=== PATIENT | female | born 1970 | race Caucasian/White ===

== ENCOUNTER 2017-02-04 20:54 | Emergency (ER) | payer MEDICAID ==
[~2017-02-04] VITALS: Ht 162.6 cm; Wt 78.9 kg
[~2017-02-04 20:54] MED LIST: BUSP10TA3 PO; PROZAC; SERT50TA PO; ZYPREXA
[2017-02-04] MEDS ORDERED: PREG100C PO (22:11)
[2017-02-04] MEDS ORDERED: DULO60CA45 PO (22:12)
--- NOTE | 2017-02-04 23:01 | NUR ---
Pt dc;ed home w/ aci , pt given script for clindamycin po and kenalog cream and motrin po.
[2017-02-04 23:02] VITALS: BP 128/82
== END 2017-02-04 23:03 | disposition home or self-care (01) ==
LOC: ER 20:57
DX: L03.115 Cellulitis of right lower limb (principal); K21.9 Gastro-esophageal reflux disease without esophagitis; F17.200 Nicotine dependence, unspecified, uncomplicated; F41.9 Anxiety disorder, unspecified
CPT/HCPCS: A4663

== ENCOUNTER 2017-10-28 23:07 | Emergency (ER) | payer BC ==
[~2017-10-28] VITALS: Ht 162.6 cm; Wt 56.7 kg
[~2017-10-28 23:07] MED LIST changes: +DULO60CA45 PO; +PREG100C PO; -PROZAC; -ZYPREXA; +ZYPREXA PO
--- NOTE | 2017-10-28 23:23 | NUR ---
DR. KNOX AT BEDSIDE FOR MSE.
[2017-10-28] MEDS ORDERED: IV NORMAL SALINE 1000 ML BAG IV ONE (23:45)
[2017-10-28 23:55] LABS: BASOPHILS # (AUTO) 0.1 K/uL (0.0-8.0); BASOPHILS % (AUTO) 0.8 % (0.0-2.0); EOSINOPHILS # (AUTO) 0.2 K/uL (0.0-0.7); EOSINOPHILS % (AUTO) 2.1 % (0.0-7.0); HEMATOCRIT 41.8 % (31.2-41.9); HEMOGLOBIN 13.5 g/dL (10.9-14.3); LYMPHOCYTES # (AUTO) 4.3 K/uL (20.0-40.0); LYMPHOCYTES % (AUTO) 44.1 % (20.5-51.5); MEAN CORPUSCULAR HGB CONC 32 g/dL (32.3-35.6); MEAN CORPUSCULAR VOLUME 80.6 fL (75.5-95.3); MONOCYTES # (AUTO) 0.7 K/uL (2.0-10.0); MONOCYTES % (AUTO) 6.8 % (0.0-11.0); NEUTROPHILS # (AUTO) 4.5 K/uL (1.8-8.9); NEUTROPHILS % (AUTO) 46.2 % (38.5-71.5); PLATELET COUNT (AUTO) 211 K/uL (179-408); RED BLOOD CELL COUNT(AUTO) 5.19 MIL/uL (3.63-4.92); WHITE BLOOD COUNT (AUTO) 9.7 K/uL (3.8-11.8)
--- NOTE | 2017-10-28 23:57 | NUR ---
ORAL CONTRAST STARTED AT THIS TIME. RADIOLOGY NOTIFIED.
[2017-10-29 00:11] LABS: BILIRUBIN,DIRECT 0.2 mg/dL (0.0-0.2); BILIRUBIN,TOTAL 0.7 mg/dL (0.2-1.0); CREATININE 0.8 mg/dL (0.6-1.3); TOTAL PROTEIN, SERUM 6.9 g/dL (6.4-8.2)
[2017-10-29] MEDS ORDERED: DIATR MEGLU/DIATRIZOATE SODIUM 120 ML BOTTLE ONE (00:13)
[2017-10-29 00:16] LABS: POTASSIUM 2.8 mmol/L (3.5-5.1)
[2017-10-29] MEDS ORDERED: DIATR MEGLU/DIATRIZOATE SODIUM 120 ML BOTTLE PO ONE (00:30)
[2017-10-29] MEDS ORDERED: POTASSIUM CHLORIDE 20 MEQ TAB.PRT.SR PO ONE (00:30)
[2017-10-29] MEDS ORDERED: POTASSIUM CHLORIDE 20 MEQ POWDER PACKET PO ONE (01:15)
[2017-10-29] MEDS ORDERED: POTASSIUM CHLORIDE 20 MEQ POWDER PACKET ONE (01:22)
[2017-10-29] MEDS ORDERED: IV NORMAL SALINE 250 ML IV ONE (01:37)
[2017-10-29] MEDS ORDERED: IOHEXOL 300MG/ML 100 ML INFUS..BTL ONE (01:37)
--- NOTE | 2017-10-29 03:21 | NUR ---
Patient discharged to home in stable conditon. Written and verbal after care instructions given. Patient verbalizes understanding of instructions. PATIENT LEFT WITH STABLE GAIT.
[2017-10-29 03:23] VITALS: BP 114/78
== END 2017-10-29 03:23 | disposition home or self-care (01) ==
LOC: ER 23:11
DX: R11.0 Nausea (principal); R53.1 Weakness; R10.9 Unspecified abdominal pain; K21.9 Gastro-esophageal reflux disease without esophagitis; F17.200 Nicotine dependence, unspecified, uncomplicated; Z90.49 Acquired absence of other specified parts of digestive tract
CPT/HCPCS: 36415; 70030-TC; 71010; 83690; 83735; 84703; 85025; 85730; 93005; A4663; J7030; J7050; Q9963; Q9967

== ENCOUNTER 2017-11-02 16:40 | Emergency (ER) | payer BC ==
[~2017-11-02] VITALS: Ht 157.5 cm; Wt 77.1 kg
[2017-11-02] MEDS ORDERED: ESOM20CA PO (16:57)
[2017-11-02] MEDS ORDERED: ESOM40CA52 PO (16:57)
[2017-11-02] MEDS ORDERED: GABA-534 PO (16:57)
[2017-11-02] MEDS ORDERED: IV NS 1000 ML 1,000 ML IV ONE (17:30)
[2017-11-02 17:55] LABS: BASOPHILS % (AUTO) 0.3 % (0.0-2.0); EOSINOPHILS # (AUTO) 0.2 K/uL (0.0-0.7); EOSINOPHILS % (AUTO) 1.7 % (0.0-7.0); HEMATOCRIT 41.5 % (31.2-41.9); HEMOGLOBIN 13.5 g/dL (10.9-14.3); LYMPHOCYTES % (AUTO) 26.4 % (20.5-51.5); MEAN CORPUSCULAR HEMOGLOBIN 26.2 uug (24.7-32.8); MEAN CORPUSCULAR HGB CONC 32 g/dL (32.3-35.6); MEAN CORPUSCULAR VOLUME 80.8 fL (75.5-95.3); MONOCYTES # (AUTO) 0.6 K/uL (2.0-10.0); NEUTROPHILS # (AUTO) 7.6 K/uL (1.8-8.9); NEUTROPHILS % (AUTO) 66.6 % (38.5-71.5); PLATELET COUNT (AUTO) 209 K/uL (179-408); RED BLOOD CELL COUNT(AUTO) 5.14 MIL/uL (3.63-4.92); WHITE BLOOD COUNT (AUTO) 11.4 K/uL (3.8-11.8)
[2017-11-02 18:04] LABS: BILIRUBIN,TOTAL 0.7 mg/dL (0.2-1.0); CREATININE 0.8 mg/dL (0.6-1.3); TOTAL PROTEIN, SERUM 7.1 g/dL (6.4-8.2)
[2017-11-02 18:09] LABS: POTASSIUM 2.8 mmol/L (3.5-5.1)
[2017-11-02] MEDS ORDERED: POTASSIUM CHLORIDE 20 MEQ TAB.PRT.SR PO ONE (18:15)
--- NOTE | 2017-11-02 18:23 | NUR ---
Patient refused oral potassium MD amilcar notified
[2017-11-02] MEDS ORDERED: POTASSIUM CHLORIDE 20 MEQ TAB.PRT.SR ONE (18:35)
--- NOTE | 2017-11-02 19:02 | NUR ---
Dr De Leon is at bedside evaluating the patient at this time.
--- NOTE | 2017-11-02 19:06 | NUR ---
Hands off report given to ROMINA Hernández accordingly
[2017-11-02] MEDS ORDERED: POTASSIUM CHLORIDE 50 ML IV SCH (19:15)
[2017-11-02] MEDS ORDERED: IV NORMAL SALINE 1000 ML BAG IV ONE (19:15)
--- NOTE | 2017-11-02 19:20 | NUR ---
Received report from ROMINA Winston. Assumed care of pt at this time.
[2017-11-02 19:25] LABS: *BLOOD, URINE 2+ (NEGATIVE); *CLARITY,URINE CLOUDY (CLEAR); *COLOR,URINE DARK YELLOW (YELLOW); *KETONES,URINE 2+ (NEGATIVE); *PROTEIN,URINE 2+ (NEGATIVE); LEUKOCYTE ESTERASE ,URINE 1+ (NEGATIVE); NITRITE, URINE NEGATIVE (NEGATIVE); PH,URINE 5.5 (5.0-8.0); UGLUCOSE NEGATIVE (NEGATIVE)
[2017-11-02 19:29] LABS: *BILIRUBIN,URIN 2+ (NEGATIVE)
--- NOTE | 2017-11-02 19:30 | NUR ---
CALLED FOR POTASSIUM, OUT OF STOCK IN ER
[2017-11-02 19:31] LABS: BACTERIA,URINE MANY /HPF (NONE SEEN); SQUAMOUS EPITHELIAL CELL,UR FEW /HPF (NONE SEEN); WBC,URINE 20-50 /HPF (0-3)
[2017-11-02] MEDS ORDERED: MAGNESIUM SULFATE/D5W 100 ML IV SCH (20:45)
[2017-11-02] MEDS ORDERED: CEFTRIAXONE 500 MG VIAL IV ONE (21:15)
--- NOTE | 2017-11-02 21:22 | NUR ---
PT PROVIDED ICE CHIPS, WILL MONITOR TOLERATION. DENIES N/V AT THIS TIME. RESTING COMFORTABLY.
[2017-11-02] MEDS ORDERED: MAGNESIUM SULFATE/D5W 100 ML ONE (22:02)
[2017-11-02] MEDS ORDERED: CEFTRIAXONE 500 MG VIAL ONE (22:03)
[2017-11-02] MEDS ORDERED: POT CHLORIDE/POT BICARB/CIT AC 25 MEQ TABLET.EFF PO ONE (22:45)
[2017-11-02] MEDS ORDERED: POTASSIUM BICARBONATE/CIT AC 25 MEQ TABLET.EFF ONE (23:29)
--- NOTE | 2017-11-02 23:29 | NUR ---
Pt sts she is feeling better. Pt stable for discharge per MD. IV dc'd, catheter intact. Drsg applied. No problems noted to site. Pt given ACI. Pt verbalized understanding of dc instructions. Pt ambulated out of er with steady gait.
[2017-11-02 23:34] VITALS: BP 100/51
== END 2017-11-02 23:42 | disposition home or self-care (01) ==
LOC: ER 16:40
DX: K31.1 Adult hypertrophic pyloric stenosis (principal); K21.9 Gastro-esophageal reflux disease without esophagitis; E86.0 Dehydration; E87.6 Hypokalemia; F17.200 Nicotine dependence, unspecified, uncomplicated; Z90.49 Acquired absence of other specified parts of digestive tract
CPT/HCPCS: 36415; 71010; 80053; 81001; 83735; 85025; 87086; 93005; 96361; 96365; 96367; 99285; A4663; J0696; J3475; J7030 ×5; 87077

== ENCOUNTER 2018-05-09 18:57 | Emergency (ER) | payer BC ==
[~2018-05-09] VITALS: Ht 162.6 cm; Wt 86.6 kg
[~2018-05-09 18:57] MED LIST changes: +ESOM20CA PO; +ESOM40CA52 PO; +GABA-534 PO
--- NOTE | 2018-05-09 20:08 | NUR ---
Dr. Pond at bedside for MSE.
--- NOTE | 2018-05-09 21:18 | NUR ---
Ultrasound at bedside.
--- NOTE | 2018-05-09 22:32 | NUR ---
Patient discharged to home in stable conditon. Written and verbal after care instructions given. Patient verbalizes understanding of instructions. Crutches dispensed, gait training provided, Patient ambulated out of ER with crutches, VSS, all belongings taken, no acute signs of distress.
[2018-05-09 23:09] VITALS: BP 115/79
== END 2018-05-09 22:32 | disposition home or self-care (01) ==
LOC: ER 19:01
DX: M79.604 Pain in right leg (principal); K21.9 Gastro-esophageal reflux disease without esophagitis; F17.200 Nicotine dependence, unspecified, uncomplicated; Z90.49 Acquired absence of other specified parts of digestive tract; Z79.899 Other long term (current) drug therapy
CPT/HCPCS: 73590; 73600; 73620; A4663

== ENCOUNTER 2019-03-29 16:53 | Emergency (ER) | payer BC ==
[~2019-03-29] VITALS: Ht 160 cm; Wt 99.8 kg
--- NOTE | 2019-03-29 17:40 | NUR ---
Dr De Leon at the bedside for MSE.
[2019-03-29] MEDS: MORPHINE SULFATE 4 MG/1 ML DISP.SYRIN IM ONE ×2 (17:59→18:00)
[2019-03-29] MEDS: ONDANSETRON 4 MG/2 ML VIAL IM ONE ×2 (18:00→18:01)
[2019-03-29 18:01] VITALS: BP 110/79
--- NOTE | 2019-03-29 18:01 | NUR ---
Patient discharged to home in stable conditon. Written and verbal after care instructions given. Patient verbalizes understanding of instructions.
== END 2019-03-29 18:03 | disposition home or self-care (01) ==
LOC: ER 16:53
DX: L03.116 Cellulitis of left lower limb (principal); K21.9 Gastro-esophageal reflux disease without esophagitis; F17.200 Nicotine dependence, unspecified, uncomplicated; Z90.49 Acquired absence of other specified parts of digestive tract; Z79.899 Other long term (current) drug therapy
CPT/HCPCS: A4663

== ENCOUNTER 2019-08-14 15:17 | Emergency (ER) | payer BC ==
[~2019-08-14] VITALS: Ht 162.6 cm; Wt 95.7 kg
[~2019-08-14 15:17] MED LIST changes: -SERT50TA PO
[2019-08-14 16:00] LABS: BASOPHILS # (AUTO) 0.1 K/uL (0.0-8.0); BASOPHILS % (AUTO) 0.7 % (0.0-2.0); EOSINOPHILS # (AUTO) 0.1 K/uL (0.0-0.7); EOSINOPHILS % (AUTO) 1.1 % (0.0-7.0); HEMATOCRIT 42.7 % (31.2-41.9); HEMOGLOBIN 13.7 g/dL (10.9-14.3); LYMPHOCYTES # (AUTO) 3.4 K/uL (20.0-40.0); MEAN CORPUSCULAR HEMOGLOBIN 26.2 uug (24.7-32.8); MEAN CORPUSCULAR HGB CONC 32 g/dL (32.3-35.6); MEAN CORPUSCULAR VOLUME 81.5 fL (75.5-95.3); MONOCYTES # (AUTO) 0.5 K/uL (2.0-10.0); MONOCYTES % (AUTO) 4.6 % (0.0-11.0); NEUTROPHILS # (AUTO) 6.9 K/uL (1.8-8.9); NEUTROPHILS % (AUTO) 62.6 % (38.5-71.5); PLATELET COUNT (AUTO) 226 K/uL (179-408); RED BLOOD CELL COUNT(AUTO) 5.23 MIL/uL (3.63-4.92); WHITE BLOOD COUNT (AUTO) 11.1 K/uL (3.8-11.8)
[2019-08-14 16:02] LABS: CREATININE 0.7 mg/dL (0.6-1.3); POTASSIUM 3.9 mmol/L (3.5-5.1)
[2019-08-14 16:09] LABS: BILIRUBIN,DIRECT 0.1 mg/dL (0.0-0.2); BILIRUBIN,TOTAL 0.4 mg/dL (0.2-1.0); TOTAL PROTEIN, SERUM 7.3 g/dL (6.4-8.2)
[2019-08-14] MEDS ORDERED: ASPIRIN 325 MG TABLET PO ONE (16:15)
[2019-08-14 16:18] LABS: *BILIRUBIN,URIN 1+ (NEGATIVE); *BLOOD, URINE 2+ (NEGATIVE); *COLOR,URINE DARK YELLOW (YELLOW); *KETONES,URINE 1+ (NEGATIVE); *UROBILINOGEN,URINE 0.2 E.U./dl (NORMAL); LEUKOCYTE ESTERASE ,URINE NEGATIVE (NEGATIVE); NITRITE, URINE NEGATIVE (NEGATIVE); PH,URINE 5.5 (5.0-8.0); UGLUCOSE NEGATIVE (NEGATIVE)
[2019-08-14 16:19] LABS: *URINE HCG, QUAL NEGATIVE (NEGATIVE)
[2019-08-14 16:22] LABS: *CLARITY,URINE SLIGHTLY HAZY (CLEAR)
[2019-08-14 16:23] LABS: WBC,URINE 0-3 /HPF (0-3)
[2019-08-14 16:24] LABS: MUCUS,URINE MANY /LPF (0-FEW); SQUAMOUS EPITHELIAL CELL,UR FEW /HPF (NONE SEEN)
[2019-08-14] MEDS ORDERED: ASPIRIN 325 MG TABLET ONE (16:39)
--- NOTE | 2019-08-14 16:40 | NUR ---
Radha readgunjan in EDM - 08/14/19 at 1642 by SUNDAR PT WAS EVALUATED BY DR HART. PT WAS MEDICATED ACCORDING TO DR HART ORDERS. PT TOLERATED TO MEDICATIONS AND PROCEDURES WITHOUT COMPLICATIONS. REPORT WAS GIVEN TO ROMINA Gomez/Gerardo. PT WAS TRANSFERED TO ROOM #305.
--- NOTE | 2019-08-14 16:42 | NUR ---
PT IS IN ROOM #1B. DR HART EVALUATE THE PT.
--- NOTE | 2019-08-14 19:03 | NUR ---
PT IS GOING TO BE TRANSFERED TO [facility]IA [facility]. MECHE TOVAR IS DR SAGE. HOSPITAL REP ISTERRY. PT IS GOING TO TELEMETRY ROOM #522. TELEPHONE NUMBER FOR [facility] IS - [phone]. AUTORIZATION # [id number] - TO CALL AMBULANCE.
--- NOTE | 2019-08-14 19:13 | NUR ---
[facility] WAS CALLED AT # 28-28 . HAM IS 3 HRS. TRIP # [id number]. REPORT GIVEN TO [employer]AXIM[employer] REPAIRER ROMINA SANDOVAL.
--- NOTE | 2019-08-14 22:30 | NUR ---
pt was transfered to [facility] via ambulancce . report given to ira VANEGAS and the ambulance . pt on her route to [facility].
== END 2019-08-15 00:10 | disposition short-term general hospital (02) ==
LOC: ER 15:18
DX: R07.9 Chest pain, unspecified (principal); R42 Dizziness and giddiness; R11.0 Nausea; K21.9 Gastro-esophageal reflux disease without esophagitis; F17.210 Nicotine dependence, cigarettes, uncomplicated; I25.2 Old myocardial infarction; Z90.49 Acquired absence of other specified parts of digestive tract; Z79.899 Other long term (current) drug therapy
CPT/HCPCS: 36415; 70030-TC; 71046; 83690; 84703; 85025; 93005; A4663

== ENCOUNTER 2022-12-09 16:11 | Emergency (ER) | payer BC ==
[~2022-12-09] VITALS: Ht 165.1 cm; Wt 81.2 kg
[~2022-12-09 16:11] MED LIST changes: -ESOM40CA52 PO; -GABA-534 PO; -PREG100C PO; -ZYPREXA PO
--- NOTE | 2022-12-09 18:45 | NUR ---
Pt arrived w/ c/o coughing. Seen by Dr. Bello for MSE.
--- NOTE | 2022-12-09 19:07 | NUR ---
Endorsed to Deidre VANEGAS.
[2022-12-09] MEDS ORDERED: HYDROMORPHONE 1 MG/1 ML DISP.SYRIN ONE (19:28)
--- NOTE | 2022-12-09 19:30 | NUR ---
SBAR FROM MURALI Naik RN; PT IN NAD
--- NOTE | 2022-12-09 21:00 | NUR ---
Patient discharged to home in stable condition. Written and verbal after care instructions given. Patient verbalizes understanding of instructions. Stressed follow up or return to ER for worsening s/s.
[2022-12-09 21:05] VITALS: BP 136/72
== END 2022-12-09 21:00 | disposition home or self-care (01) ==
LOC: ER 16:11
DX: R07.0 Pain in throat (principal); R05.9 Cough, unspecified; Z20.822 Contact with and (suspected) exposure to COVID-19; Z90.49 Acquired absence of other specified parts of digestive tract; Z98.84 Bariatric surgery status; K21.9 Gastro-esophageal reflux disease without esophagitis; F41.9 Anxiety disorder, unspecified; Z79.899 Other long term (current) drug therapy; F17.210 Nicotine dependence, cigarettes, uncomplicated
CPT/HCPCS: 71045; 86403; A4663; J1170

== ENCOUNTER 2024-06-08 03:01 | Emergency (ER) | payer BC, MEDICAID ==
[~2024-06-08] VITALS: Ht 160 cm; Wt 94.3 kg
[2024-06-08] MEDS ORDERED: ALPRAZOLAM 0.5 MG TABLET ONE (03:32)
[2024-06-08] MEDS: ALPRAZOLAM 0.25 MG TABLET PO ONE (03:34)
[2024-06-08] MEDS ORDERED: ALPR0.5T PO (03:40)
[2024-06-08 03:42] VITALS: BP 126/74; TEMP 98; O2SAT 99
== END 2024-06-08 03:47 | disposition home or self-care (01) ==
LOC: ER 03:07
DX: F41.9 Anxiety disorder, unspecified (principal); F32.A Depression, unspecified; F17.210 Nicotine dependence, cigarettes, uncomplicated; Z90.49 Acquired absence of other specified parts of digestive tract; Z79.899 Other long term (current) drug therapy
CPT/HCPCS: A4606; A4663